=== PATIENT | female | born 1965 | race Caucasian/White ===

== ENCOUNTER 2023-05-20 20:56 | Emergency (ER) | payer MEDICAID, SELFPAY ==
[2023-05-20 21:01] VITALS: BP 169/86; PULSE 90; RESP 20; TEMP 36.6; O2SAT 99; BMI 39.9
--- NOTE | 2023-05-20 21:25 | ED.EAR1 ---
HPI - Ear Problem General Chief complaint: Ear Stated complaint: SWELLING RT EAR Time Seen by Provider: 05/20/23 21:22 Source: patient Mode of arrival: walk-in History of Present Illness HPI Narrative: presents complaining of swelling and burning itching pain of the right ear. Started last night. Believes she may have been bitten by a bug but is not sure. No dizziness or headache. Hearing muffled on the right. No dental pain MD Complaint: Reports ear pain Location: right ear Related Data Home Medications Medication Instructions Recorded Confirmed omeprazole 20 mg capsule,delayed 20 mg PO DAILY 05/20/23 05/20/23 release phentermine 15 mg capsule 15 mg PO DAILY 05/20/23 05/20/23 Allergies Allergy/AdvReac Type Severity Reaction Status Date / Time Sulfa (Sulfonamide AdvReac Mild Hives Verified 05/20/23 21:01 Antibiotics) Review of Systems ROS Status of ROS 10 or more systems reviewed and unremarkable except as noted in history and below [facility] Medical History (Updated 05/20/23 @ 23:08 by Mukesh Castillo MD) Exam Constitutional Vital Signs, click to edit/add: Last Vital Signs Temp 97.9 F 05/20/23 21:01 Pulse 90 05/20/23 21:01 Resp 20 05/20/23 21:01 BP 169/86 H 05/20/23 21:01 Pulse Ox 99 05/20/23 21:01 O2 Del Method Room Air 05/20/23 21:01 Common normals: no apparent distress, oriented x3, no limitations, healthy appearing and alert HENNE Other: right external ear is enlarged and mildly erythematous. ear canal is narrow. TM appears normal. No exudate in the canal. Eye Common normals: PERRL, EOMs intact bilaterally and conjunctivae normal Respiratory Common normals: normal respiratory effort, no retractions and no use of accessory muscles Cardio Common normals: regular rate, regular rhythm, S1 normal heart sound and S2 normal heart sound GI Common normals: Normal to inspection, nondistended, normoactive bowel sounds present and non-tender Extremity Common normals: normal to inspection, full ROM and no joint enlargement Neuro Common normals: oriented x3, CN's II-XII intact bilaterally, moves all extremities, no focal motor deficits and no sensory deficits noted Psych Appearance: grossly normal Course Vital Signs Vital signs: Vital Signs Temperature 97.9 F 05/20/23 21:01 Pulse Rate 90 05/20/23 21:01 Respiratory Rate 20 05/20/23 21:01 Blood Pressure 169/86 H 05/20/23 21:01 Pulse Oximetry 99 05/20/23 21:01 Oxygen Delivery Method Room Air 05/20/23 21:01 Temperature 97.9 F 05/20/23 21:01 Pulse Rate 90 05/20/23 21:01 Respiratory Rate 20 05/20/23 21:01 Blood Pressure 169/86 H 05/20/23 21:01 Pulse Oximetry 99 05/20/23 21:01 Oxygen Delivery Method Room Air 05/20/23 21:01 Medical Decision Making MDM Narrative Medical decision making narrative: patient presents with one day history of swelling of the right ear. Believes she may have been bitten or stung by insect. Describes burning itching pain. Has mod. swelling and erythema of the ext. ear. mild erythema at entry of ear canal. TM normal. Treated in the ER with Rocephin and solumedrol and prior to discharge the swelling and burning had decreased some. Discharged home with prescription of keflex and prednisone Discharge Plan Discharge Chief Complaint: Ear Clinical Impression: Cellulitis of ear Patient Disposition: Home, Self-Care Mode of Transportation: Private Vehicle Prescriptions / Home Meds: No Action omeprazole 20 mg capsule,delayed release(DR/EC) 20 mg PO DAILY phentermine 15 mg capsule 15 mg PO DAILY Rx Instructions: must administer 2 hours after breakfast Instructions: Cellulitis (ED) Additional Instructions: follow up with your doctor next week or with Dr Alexis for recheck Stand Alone Forms: Portal Instructions Referrals: Physician,Non-Staff, MD [Primary Care Provider] - 1 week
[2023-05-20] MEDS: METHYLPREDNISOLONE SOD SUCC PF 125 MG/2 ML VIAL IVP (22:07)
[2023-05-20 22:08] LABS: Basophils Percent Auto 0.5 % (0.2-2.0); Eosinophils Absolute Auto 0.2 10^3/uL (0.0-0.7); Hematocrit 44.7 % (36.0-48.0); Immature Granulocytes Abs Auto 0.03 10^3/uL (0.00-0.03); Immature Granulocytes Pct Auto 0.4 % (0.0-0.5); Lymphocytes Absolute Auto 1.7 10^3/uL (1.2-3.8); Lymphocytes Percent Auto 20.4 % (20.5-60.0); Mean Corpuscular HGB Conc 31.3 g/dL (29.9-35.2); Mean Corpuscular Hemoglobin 26.8 pg (26.7-34.0); Mean Corpuscular Volume 85.6 fL (81.0-99.0); Mean Platelet Volume 9.3 fL (9.5-13.5); Monocytes Absolute Auto 0.6 10^3/uL (0.3-0.8); Monocytes Percent Auto 7.6 % (1.7-12.0); Neutrophils Absolute Auto 5.7 10^3/uL (1.4-6.5); Neutrophils Percent Auto 69.1 % (43.0-75.0); Platelet Count 237 10^3/uL (150-450); Red Blood Count 5.22 10^6/uL (4.20-5.40); Red Cell Distribution Width 14.6 % (11.0-15.0); White Blood Count 8.2 10^3/uL (4.0-11.0)
[2023-05-20] MEDS: CEFTRIAXONE 1,000 MG in 0.9 % SODIUM CHLORIDE 50 ML 100 MG IV (22:08)
[2023-05-20 22:16] LABS: Anion Gap 12.6; BUN Creatinine Ratio 14.8; C Reactive Protein 0.3 mg/dL (<=1.0); Calcium 9.1 mg/dL (8.5-10.1); Carbon Dioxide 27.4 mmol/L (21.0-32.0); Chloride 103 mmol/L (98-107); Estimated GFR (African America 59 (>=60); Estimated GFR (Non-African Ame 48 (>=60); Glucose 98 mg/dL (74-106); Sodium 139 mmol/L (136-145)
== END 2023-05-20 23:20 | disposition home or self-care (01) ==
PROVIDERS: Emergency Provider Internal Medicine
DX: H60.11 Cellulitis of right external ear (principal)
CPT/HCPCS: 36415; 80048; 85025; 86140; 96365; 96375; 99284; J2930

== ENCOUNTER 2025-05-25 03:22 | Emergency (ER) | payer MEDICAID, SELFPAY ==
--- OUTSIDE RECORDS SUMMARY | 2025-05-13 12:10 | XMS_ITS ---
Author Organization [employer] Address [address] [place] [address] Care Team Providers Care Seam Hammerer Name Role Phone Brittney Grace Unavailable [phone] Allergies Allergen (clinical drug ingredient) Drug/Non Drug Allergy documented on EMR Reaction Allergy Type Onset Date Status metronidazole metroNIDAZOLE Nausea/Vomitin g Drug Allergy Active Sulfanilamide Nausea Drug Allergy Act hyun REASON FOR VISIT 5r, pt undressed from waist down, colposcopy w/ Brittney, c/o she said she bled a lot last time, upt neg Medications Medication SIG (Take, Route, Fr equency, Duration) Notes Start Date End Date Status Valium 10 MG 1 tablet as needed O rally Once a day 02/05/2025 Not-Taking Omeprazole Active Social History Sex Assigned At : Social History Observation Description Sex Assigned At Female Vital Signs Blood pressure systolic 132 mm Hg 05/13/20 25 Blood pressure diastolic 88 mm Hg 025 Heart Rate 80 /min 05/13/2025 Height 62 in 05/13/2025 Weight 217 lbs 05/13/2025 BMI 39.69 kg/m2 05/13/2025 Height-cm 157.48 cm 05/13/2025 Weight-kg 98.43 kg 05/13/2025 Encounters Encounter Location Date Provider Diagnosis [facility] [address] [place] [id number] 05/13/2025 Brittney Grace Atypical squamous cells of undetermined significance on cytologic smear of cervix (ASC-US) R87.610 and Cervical high risk human papillomavirus (HPV) DNA test positive R87.810 Assessments Encounter Date Diagnosis (ICD Code) Assessment Notes Treatment Notes Treatment Clinical Notes Section Notes 05/13/2025 Atypical squamous cells of undetermined significance on cytologic smear of cervix (ASC-US) (ICD-10 - R87.610) Dwp sexually transmitted with 80% of population having exposure- dwp disease process. encouraged healthy lifestyle, multivitamin, green tea. dwp process of colpo. encouraged keeping current with paps/ tx plan. pt verbalized understanding. questions answered 05/13/2025 Cervical high risk human papillomavirus (HPV) DNA test positive (ICD-10 - R87.810) Reviewed process ,consent signed, procedure completed with bx,12 oclock ecc,lorena well, results pending.instructe d on after care and wss 05/13/2025 Other DWP natural hx of her condition(s), RBAs of the above recommendations, WSS, treatment plan and instructions, appropriate teaching, circumstances under which pt should call. please discuss any med interactions with pharmacist. Pt verbalizes understanding and agrees to proceed with discussed plan of care. Plan Of Treatment Treatment Notes Assessment Notes Atypical squamous cells of u ndetermined significance on cytologic smear of cervix (ASC-US) Dwp sexually transmitted with 80% of population having exposure- dwp disease process. encouraged healthy lifestyle, multivitamin, green tea. dwp process of colpo. encouraged keeping current with paps/ tx plan. pt verbalized understanding. questions answered Cervical high risk human pap illomavirus (HPV) DNA test positive Reviewed process ,consent signed, procedure completed with bx,12 oclock ecc,lorena well, results pending.instructed on after care and wss Other DWP natural hx of he r condition(s), RBAs of the above recommendations, WSS, treatment plan and instructions, appropriate teaching, circumstances under which pt should call. please discuss any med interactions with pharmacist. Pt verbalizes understanding and agrees to proceed with discussed plan of care. Future Test Test Name Order Date Pathology Report-[id number] 05/13/2025 Next Appt Details Follow Up: 2w mvv results, R dileep: Provider Name:Brittney Grace, 06/02/2025 03:40:00 PM, [address], [place], [id number], Procedure Notes * Category Sub-Category Detail Notes Colposcopy Consent: Signed Procedure: Pt placed in dorsal lith position, micha spec applied with good visualization of cervix. vinegar applied to cervix and AW changes noted at ___12 o'clock, cervix biopsies taken at ___12 o'clock, ECC done. Hemostasis assured with pressure an, Colposcopic site: Cervix Indication: Ascus hpv Endocervical Curettage: Yes Biopsy 1: 12 oclock Biopsy site treatment: Pressure Disposition: Tolerated well Date of Pap: 2024 Test: Menopausal Progress Notes * Livan SOSAB:[birth year] (59 yo F)Acc No.[id number]:05/13/2025 Patient: Vernell MACDONALD Provider: Yemi Grace NP :1965 A ge:59 Y S ex:Female Date:05/13/2025 Address:[facility], [place], [id number] Subjective: * Chief Complaints: * 5 r, pt undressed from waist down, colposcopy w/ Brittney, c/o she said she bled a lot last time, upt neg * HPI: H PI: Abn pap. onset unknown. location cervix. denies pain, vag bleeding.sexually transmitted. here to discuss findings, treatment here for colpo after abn pap. * ROS: G ynecology: Abnormal bleeding d enies. B reast: Patient denies B SE done regularly. Denies lumps. Denies nipple problems. Denies mastalgia. Denies tenderness. Denies rash. Denies Other problems.. ? G enitourinary: Patient denies D enies Hematuria. Denies Dysuria. Denies Frequency. Denies hesitation. Denies incomplete emptying. Denies urgency. Denies incontinence. Denies pads. Denies pain. Denies bloating. Denies rectal fulness. Denies defecation. Denies Other problems.. * Medical History: * Hot Box Checker History: M enstrual history: L MP: 0 12/12/2016. D enies H/O Periods :. B irth control?None. S exual activity c urrently sexually active, dryness. S exually Transmitted Diseases (STDs) H uman papilloma virus (HPV). L ast PAP smear date: L ast pap smear 0 02/11/2025. C ytology result: A SCUS, +HPV,colpo atypia. P AP History 2 Nov Pap ASCUS, +[id number] Colposcopy, dx [id number] March pap ASCUS +HPV colpo pending. L ast WWE?[id number]. L ast Mammogram: D ate 0 04/25/2025, Results p er patient normal. * OB History: P regnancy History: T otal pregnancies: 3 , F ull-term pregnancies: 3 , P re-term pregnancies 0 , E ctopic pregnancies: 0 , A B Induced: 0 , A B Spontaneous: 0 , T otal living children: 3 , M ultiple births: 0 , S tillbirth (s): 0 . P regnancy #1 D ate 1 11/17/1981, G A Weeks 4 1, T ype of Delivery?. P regnancy #2 D ate 0 07/24/1988, G A Weeks 4 1, T ype of Delivery N . P regnancy #3 D ate 0 06/27/1990, T ype of Delivery N . * Surgical History: g allbladder removed * Hospitalization/Major Diagno stic Procedure: D enies Past Hospitalization * Family History: F ather: , diagnosed with Cancer, High Cholesterol. M igrated Family History: : Cancer: m- grandpa lUng, father-renal, Diabetes: none, [employer] Problems: mom-hysterectomy @ 46, Heart Disease: mom, Hyperlipidemia: dad, Hypertension: dad, Mother Health: good, Siblings Living#: 3, Siblings #: 0. M other: alive, diagnosed with Hypertension. M aternal Grandfather: diagnosed with Cancer. father kidney cancer mat gpa lung. * Social History: T obacco Use: T obacco Use D o you smoke? N o. * Medications: T akingOmeprazole Taking Omeprazole Not-TakingValium 10 MG Tablet 1 tablet as needed Orally Once a day Medication List reviewed and reconciled with the patientNot- Taking Valium 10 MG Tablet 1 tablet as needed Orally Once a day Medication List reviewed and reconciled with the patient * Allergies: m etroNIDAZOLE: Nausea/Vomiting - AllergySulfanilamide: Nausea - Allergyno[Allergies Verified] Objective: * Vitals: BP 132/88mm Hg 05/13/2025 04:16:50 PM MST HR* 80/min 05/13/2025 04:16:50 PM MST Zara R obinson Wt* 217lbs 05/13/2025 04:16:50 PM MST Azra R obinson Wt-kg* 98.43kg 05/13/2025 04:16:50 PM MST Zara R obinson Ht* 62in 05/13/2025 04:16:50 PM MST Zara R obinson Ht-cm* 157.48cm 05/13/2025 04:16:50 PM MST Zara R obinson BMI* 39.69Index 05/13/2025 04:16:50 PM MST Zara R obinson Body Surface Area* 2.08 05/13/2025 04:16:50 PM MST Zara R obinson * Examination: L imited Exam: Appearance W ell developed. Well nourished. Well groomed. In good apparent health.. Skin G ood Hydration. Normal tone/turgor. Normal to inspection. No Lesions. Normal hair distribution. No actinic changes.. HEENT: S ymmetrical pupils. Sclera WNL. No Strabismus..? Lungs G ood respiratory effort. Non-labored respirations..? Neuro/Psych A lert. Cooperative. Oriented to place, time, and person. Normal speech and behavior. No Tremors. Normal mood and affect. No outward signs of depression. No apparent anxiety. Not agitated. Cranial nerves II-XII grossly intact.. ? G ynecologic: Vulva: N ormal crinis pubis and hair distribution. No localized or pigmented lesions. No mass(es). Normal clitoris. Normal BUS. Normal labia. Normal perineum and fourchette. Normal introitus.. Vagina: N o localized lesions. No congestion. No abnormal discharge. No forniceal changes. Good estrogen effect. No mass(es). No cystourethrocele. No enterocele. No rectocele.. Cervix: W ell supported. Without fixation. Not tender to motion.. Uterus: N ormal position. Normal contour. Normal consistency. Freely movable. No tenderness / thickening. No masses.. Adnexa: W ithout tenderness, mass, thickening, fixation, or other abnormality.. Assessment: * Assessment: 1. A typical squamous cells of undetermined significance on cytologic smear of cervix (ASC-US) - R87.610 (Primary) 2 . C ervical high risk human papillomavirus (HPV) DNA test positive - R87.810 Plan: * Treatment: 2. C ervical high risk human papillomavirus (HPV) DNA test positive L AB: Pathology Report-[id number] (Ordered for 05/13/2025) Notes: Reviewed process ,consent signed, procedure completed with bx,12 oclock ecc,lorena well, results pending.instructed on after care and wss 3. O thers Notes: DWP natural hx of her condition(s), RBAs of the above recommendations, WSS, treatment plan and instructions, appropriate teaching, circumstances under which pt should call. please discuss any med interactions with pharmacist. Pt verbalizes understanding and agrees to proceed with discussed plan of care. * Procedures: C olposcopy: Indication: A scus hpv. D ate of Pap: 2 025. E ndocervical Curettage: Y es. C onsent: S igned. C olposcopic site: C ervix. P rocedure: P t placed in dorsal lith position, micha spec applied with good visualization of cervix. vinegar applied to cervix and AW changes noted at ___12 o'clock, cervix biopsies taken at ___12 o'clock, ECC done. Hemostasis assured with pressure an,. B iopsy 1: 1 2 oclock. B iopsy site treatment: P ressure. D isposition: T olerated well. P regnancy Test: M enopausal. * Procedure Codes: * Follow Up: 2 w mvv results * Billing Information: * Visit Code: 83776 Office/Outpatient Visit Est. 78688 Bx/Curett Of Cervix W/Scope. 88093 Special Supplies. * Procedure Codes: * Sign off status: Completed true * Provider: Yemi Grace NP Date: 05/13/2025 Generated for Ravi mayorga/Carine/Bennieitting on: 05/25/2025 01:31 AM MDT History and Physical Notes * Examination Category Sub-Category Detail Notes Category Not es Gynecologic Vulva: Normal crinis pu bis and hair distribution. No localized or pigmented lesions. No mass(es). Normal clitoris. Normal BUS. Normal labia. Normal perineum and fourchette. Normal introitus. Vagina: No localized lesions . No congestion. No abnormal discharge. No forniceal changes. Good estrogen effect. No mass(es). No cystourethrocele. No enterocele. No rectocele. Cervix: Well supported. With out fixation. Not tender to motion. Uterus: Normal position. Nor mal contour. Normal consistency. Freely movable. No tenderness / thickening. No masses. Adnexa: Without tenderness, mass, thickening, fixation, or other abnormality. Limited Exam Appearance Well developed. Well nourished. Well groomed. In good apparent health. Skin Good Hydration. Norm al tone/turgor. Normal to inspection. No Lesions. Normal hair distribution. No actinic changes. HEENT: Symmetrical pupils. Sclera WNL. No Strabismus. Lungs Good respiratory eff ort. Non-labored respirations. Neuro/Psych Alert. Cooperative. Oriented to place, time, and person. Normal speech and behavior. No Tremors. Normal mood and affect. No outward signs of depression. No apparent anxiety. Not agitated. Cranial nerves II-XII grossly intact.
--- OUTSIDE RECORDS SUMMARY | 2025-05-13 12:10 | XMS_ITS ---
Author Organization [employer] Address [address] [place] [address] Care Team Providers Care Emergency Communications Officer Name Role Phone Brittney Grace Unavailable [phone] REASON FOR VISIT colposcopy w/ Brittney Social History Sex Assigned At : Social History Observation Description Sex Assigned At Female Encounters Encounter Location Date Provider Diagnosis [facility] [address] [place], [place] [phone] 05/13/2025 Brittney Grace Plan Of Treatment Next Appt Details Provider Name:Brittney Grace, 06/02/2025 03:40:00 PM, [address], [place], [place], [phone], Progress Notes * Tila SOSAPoojaB:[birth year] 63 (59 yo F)Acc No.[id number]:05/13/2025 Patient: Vernell MACDONALD Provider: Yemi Grace NP :1965 A ge:59 Y S ex:Female Date:05/13/2025 Address:[address] [place], [id number] Subjective: * Chief Complaints: * 1 . colposcopy w/ Brittney. * Medical History: Objective: Assessment: Plan: * Treatment: * Billing Information: * Visit Code: * Procedure Codes: * Electronic signature of Hilario Grace NP on 05/25/2025 at 01:31 AM MDT Sign off status: Pending * Provider: Yemi Grace NP Date: 0 05/13/2025 Generated for Ravi mayorga/Carine/Bennieitting on: 0 05/25/2025 01:31 AM ANNITA
[2025-05-25 03:32] VITALS: PULSE 78; TEMP 36.8; O2SAT 99; BMI 38.4
--- OUTSIDE RECORDS SUMMARY | 2025-05-25 03:32 | XMS_ITS | Patient Health Record ---
Author Organization [employer] Address [address] [place] [address] Care Team Providers Care Machine Joiner Cementer Name Role Phone Lin Peguero Unavailable [phone] Brittney Grace Unavailable [phone] MelyKrystaAisha Unavailable [phone] ReedRadha Unavailable [phone] Migration, Provider Unavailable Unavailable Radha Cooney Unavailable [phone] Allergies Allergen (clinical drug ingredient) Drug/Non Drug Allergy documented on EMR Reaction Allergy Type Onset Date Status metronidazole metroNIDAZOLE Nausea/Vomitin g Drug Allergy Active Sulfanilamide Nausea Drug Allergy Act hyun Results Component Value Reference Range Notes Vaginitis/Vaginosis, DNA Pro be-[id number] Reviewed date:03/21/2025 01:12:19 PM Interpretation: Performing Lab:[facility] [place], [address] [place] [address] [address], [place], Phone - [phone], Director - [facility] Notes/Report: Silvina species TNP Test not performed. No specimen received. Specimen required is an Affirm Transport. Gardnerella vaginalis TNP Test n ot performed Trichomonas vaginalis TNP Test n ot performed Request Problem TNP Test not performed. No specimen received. TEST: [id number] Vaginitis/Vaginosis, DNA Probe Specimen required is an Affirm Transport. IGP,Aptima HPV,Age Gdln-1931 64 Reviewed date:02/19/2025 12:32:34 PM Interpretation: Performing Lab:[facility] [place], [address], [place], Phone - [phone], Director - MDCollum Notes/Report: Clinical Information:[id number] Clinical Information:[id number] Age Gdln ACOG Testing 30-65 DIAGNOSIS: EPITHELIAL CELL ABNORMALITY. ATYPICAL SQUAMOUS CELLS OF UNDETERMINED SIGNIFICANCE (ASC-US). Specimen adequacy: Satisfact ory for evaluation. Clinician provided ICD10: Z0 1.419 Performed by: [facility] (ASCP) Electronically signed by: St vianca Fair MD, Pathologist . . Pathologist provided ICD10: R87.610 Note: The Pap smear is a screening test designed to aid in the detection of premalignant and malignant conditions of the uterine cervix. It is not a diagnostic procedure and should not be used as the sole means of detecting cervical cancer. Both false-positive and false-negative reports do occur. . Test Methodology: This liquid based ThinPrep(R) pap test was screened with the use of an image guided system. HPV Aptima Positive Negative This nucleic acid amplification test detects fourteen high-risk HPV types (16,18,31,33,35,39,45,51,52,5 6,58,59,66,68) without differentiation. HPV Genotype Reflex Criteria not met, HPV Genotype not performed. Vaginitis: Silvina, BV, and trich 520550 Reviewed date:03/21/2025 01:16:01 PM Interpretation: Performing Lab:[facility] [place], [facility] [address], [place], Phone - [phone], Director - [facility] Notes/Report: and Drug Administration. by [facility]. It has not been cleared or approved by the [employer] was [employer] and its performance characteristics determined Test(s) 784066-Xmoxtog albicans, THI; 750025-Krkqnnc glabrata, THI and Drug Administration. by [facility]. It has not been cleared or approved by the [employer] was [employer] and its performance characteristics determined Megasphaera 1 Test(s) 783211- Atopobium vaginae; 471863- BVAB 2; 280715- Atopobium vaginae Low - 0 BVAB 2 Low - 0 Megasphaera 1 Low - 0 Calculate total score by adding the 3 individual bacterial vaginosis (BV) marker scores together. Total score is interpreted as follows: Total score 0-1: Indicates the absence of BV. Total score 2: Indeterminate for BV. Additional clinical data should be evaluated to establish a diagnosis. Total score 3-6: Indicates the presence of BV. Silvina albicans, THI Negative Negative Silvina glabrata, THI Negative Negative Trich vag by THI Negative Negative Written Authorization Reviewed date:03/21/2025 01:16:01 PM Interpretation: Performing Lab:[facility] [place], [address], [place], Phone - [phone], Director - [facility] Notes/Report: Test(s) 467301- Atopobium vaginae; 713842- BVAB 2; 743257- Megasphaera 1 was developed and its performance characteristics determined by [facility]. It has not been cleared or approved by the Food and Drug Administration. Test(s) 304987-Nzymcyy albicans, THI; 759888-Sivjatd glabrata, THI was developed and its performance characteristics determined by [facility]. It has not been cleared or approved by the Food and Drug Administration. Written Authorization Written Authorization Received. Authorization received from ORIGINAL ORDER 01-29-2025 Logged by [employer] Test Code Change Reviewed date:03/21/2025 01:16:01 PM Interpretation: Performing Lab:[facility] [place], [address], [place], Phone - [phone], Director - [facility] Notes/Report: Test(s) 902587- Atopobium vaginae; 265011- BVAB 2; 607083- Megasphaera 1 was developed and its performance characteristics determined by [facility]. It has not been cleared or approved by the Food and Drug Administration. Test(s) 845949-Zxehqev albicans, THI; 189550-Elifrfb glabrata, THI was developed and its performance characteristics determined by [facility]. It has not been cleared or approved by the Food and Drug Administration. Test Code Change Please note that the Microbiology test code was changed to reflect the specimen source or transport received. Ultrasound : WET CHEMISTRY ANALYST Pelvic (Not yet reviewed by provider) Interpretation: Performing Lab: Notes/Report: Ultrasound : WET CHEMISTRY ANALYST Pelvic (Not yet reviewed by provider) Interpretation: Performing Lab: Notes/Report: Ultrasound : WET CHEMISTRY ANALYST Pelvic (Not yet reviewed by provider) Interpretation: Performing Lab: Notes/Report: Ultrasound : WET CHEMISTRY ANALYST Pelvic (Not yet reviewed by provider) Interpretation: Performing Lab: Notes/Report: Pathology Report-[id number] (Not yet reviewed by provider) Interpretation: Performing Lab:[facility] [place], [address], [place], Phone - [phone], Director - [facility] Notes/Report: Clinical Information:[id number] . Material submitted: . PART A: endocervix - ECC PART B: cervix - 12:00. Modifiers: 12:00 . Clinician provided ICD-10: R87.810 . Diagnosis: Part A: ECC: BENIGN ECTOCERVICAL TISSUE. MINUTE FRAGMENTS OF BENIGN ENDOCERVICAL GLANDULAR TISSUE. . Part B: 12:00: INFLAMED FRAGMENTS OF BENIGN ECTOCERVICAL TISSUE WITH REACTIVE CHANGES. . [facility] 05/20/2025 1433 Local . Electronically signed: . Yesenia Fair MD, Pathologist . Gross description: . 2 Containers, formalin-filled, labeled with patient identification. . Part A: ECC: RECEIVED IS AN ENDOCERVICAL BRUSH. SCRAPINGS PRODUCE 0.5 GM IN AGGREGATE OF MUCUS, HEMORRHAGIC MATERIAL AND SOFT TISSUE FRAGMENTS. TOTALLY SUBMITTED IN ONE CASSETTE. . Part B: 12:00: RECEIVED IS LESS THAN 0.3 GM OF MUCUS AND ONE WAHL-RENDON SOFT TISSUE FRAGMENT. FILTERED THROUGH LENS PAPER AND TOTALLY SUBMITTED IN ONE CASSETTE. /GRV 05/16/2025 1312 Local . CPT . 721495, 051126 Vaginitis Plus: Silvina, BV, GC/Chlam, Trich 836540 Reviewed date:05/01/2025 05:59:00 PM Interpretation: Performing Lab:[facility] [place], [address] [place] [address], [place], Phone - [phone], Director - [facility] Notes/Report: and Drug Administration. by [facility]. It has not been cleared or approved by the Food was developed and its performance characteristics determined Test(s) 487311-Nuflrhj albicans, THI; 025370-Twhzmgv glabrata, THI and Drug Administration. by [facility]. It has not been cleared or approved by the Food was developed and its performance characteristics determined Megasphaera 1 Clinical Information:SRC:OMID Atopobium vaginae Low - 0 BVAB 2 Low - 0 Megasphaera 1 Low - 0 Calculate total score by adding the 3 individual bacterial vaginosis (BV) marker scores together. Total score is interpreted as follows: Total score 0-1: Indicates the absence of BV. Total score 2: Indeterminate for BV. Additional clinical data should be evaluated to establish a diagnosis. Total score 3-6: Indicates the presence of BV. Silvnia albicans, THI Negative Negative Silvina glabrata, THI Negative Negative Trich vag by THI Negative Negative Chlamydia trachomatis, THI Negative Negative Neisseria gonorrhoeae, THI Negative Negative One Specimen Identifier Reviewed date:03/21/2025 01:12:19 PM Interpretation: Performing Lab:[facility] [place], [address] [place] [address], [place], Phone - [phone], Director - [facility] Notes/Report: One Specimen Identifier The specimen received included only one patient identifier on the primary collection container. Our laboratory accrediting agency states All primary specimen containers must be labeled with 2 identifiers at the time of collection. PDF Report (Not yet reviewed by provider) Interpretation: Performing Lab:[facility] [place], [address], [place], Phone - [phone], Director - [facility] Notes/Report: An exception occurred while processing this report and so it has incomplete data. Please contact [employer] for assistance. Clinical Information:[id number] Reason For Referral Reason please refer to [facility] for morbid obesity w comorbidities Diagnosis 1 Morbid obesity (E66. 01) Referral Organization [facility] Carreno Referring Provider First Name Aisha Referring Provider Last Name Mely Referring Provider Speciality Obstetrici an and instructional manager Referred Provider Specialty Physician General Notes Rach Dunn 2024 08:00:30 PM > [facility] WET CHEMISTRY ANALYST pt, referral cannot be processed. Advised pt to get this through PCP. Referral Priority Routine Medications Medication SIG (Take, Route, Fr equency, Duration) Notes Start Date End Date Status Valium 10 MG 1 tablet as needed O rally Once a day 02/05/2025 Not-Taking Omeprazole Active Social History Sex Assigned At : Social History Observation Description Sex Assigned At Female Problems Problem Type SNOMED Code ICD Code Onset Dates Problem Status W/U Status Risk Notes Problem Polyp of corpus uteri (99498119) Polyp of corpus uteri (N84.0) Active confirmed Problem 12649186 Atypical squamous cells of undetermined significance on cytologic smear of cervix (ASC-US) (R87.610) Active confirmed Problem 9250046342 Endometrial polyp (N84.0) Active confirmed Problem 29420259 Hypertension (I10) Active confirmed Problem 857356049 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 Problem 469685791 Morbid obesity (E66.01) Active confirmed Vital Signs Heart Rate 80 /min 05/13/2025 Temperature 97.7 degrees Fahrenheit 01/24/2025 Respiratory Rate 16 /min 01/24/2025 Blood pressure diastolic 88 mm Hg 05/13/2025 Height-cm 157.48 cm 05/13/2025 Weight-kg 98.43 kg 05/13/2025 Height 62 in 05/13/2025 Blood pressure systolic 132 mm Hg 05/13/2025 Weight 217 lbs 05/13/2025 BMI 39.69 kg/m2 05/13/2025 Encounters Encounter Location Date Provider Diagnosis [facility] [address] [place], [place] [id number] 05/28/2024 Radha Mcbride Person consulting fo r explanation of examination or test findings Z71.2 Ms Doctoraurelio [facility] [address] [place], [place] [id number] 07/28/2024 Provider Migration Ms Doctora [facility] [address] [place], [place] [id number] 07/27/2024 Provider Migration [facility] Josefina Carreno [address] [facility] [place] [id number] 01/24/2025 Aisha Boone Routine gynecological examination Z01.419 [facility] Josefina Carreno [address] [place], [place] [id number] 01/31/2025 Aisha Boone Polyp of corpus uteri N84.0 [facility] Josefina Carreno [address] [place], [place] [id number] 01/31/2025 Aisha Boone Endometrial polyp N84.0 ; Hypertension I10 and Morbid obesity E66.01 [facility] Josefina Carreno [address] [place], [place] [id number] 02/05/2025 Lin Bess Atypical squamous cells of undetermined significance (ASC-US) on cervical Pap smear R87.610 [facility] [address] [place], [place] [phone] 04/25/2025 Radha Mcbride Pelvic pain R10.2 [facility] [address] [place], [place] [id number] 04/29/2025 Radha Cooney [facility] [place] [address] [place], [place] [id number] 04/29/2025 Radha Cooney Endometrial polyp N84.0 ; Atypical squamous cells of undetermined significance on cytologic smear of cervix (ASC-US) R87.610 and HPV in female B97.7 [facility] [address] [place], [place] [id number] 05/13/2025 Brittney Grace Atypical squamous cells of undetermined significance on cytologic smear of cervix (ASC-US) R87.610 and Cervical high risk human papillomavirus (HPV) DNA test positive R87.810 [facility] [address] [place], [place] [id number] 05/13/2025 Brittney Bergkin Assessments Encounter Date Diagnosis (ICD Code) Assessment Notes Treatment Notes Treatment Clinical Notes Section Notes 05/28/2024 Person consulting for explanation of examination or test findings (ICD-10 - Z71.2) 01/24/2025 Routine gynecological examination (ICD-10 - Z01.419) 01/31/2025 Polyp of corpus uteri (ICD-10 - N84.0) 01/31/2025 Endometrial polyp (ICD-10 - N84.0) EMS 0.71mm + 0.66cm polyp. No postmenopausal bleeding. If PMB bleeding occurs, will do bx or likely pt to prefer hysteroscopy D&C 01/31/2025 Hypertension (ICD-10 - I10) BP 180/90 today concerning for hypertensive urgency,,, asymptomatic, not on any antihypertensives. Was rx'd lisinopril 5mg but doesn't take it, instructed pt to go home and take this immediately. States BPs at home are 138/80. Pt has appt at the beginning of february, encouraged to f/u sooner and take home BP machine. Pt states she has white coat HTN. Discussed risk of strokes/ intracranial hemorrhage, HTN. If pt BP still elevated s/p lisinopril at home, go to ER. 02/05/2025 Atypical squamous cells of undetermined significance (ASC-US) on cervical Pap smear (ICD-10 - R87.610) We have reviewed the ASCCP guidelines using a schematic diagram. Encouraged diet high in f&v, 7-8h sleep each night, and folic acid supplement. She is a non-smoker. The next steps include: Colposcopy next available. She used a Valium 10mg last colpo. Sent another today. Advised pt re MOA, directions, risks, and possible s/e of all medications prescribed today. The plan was DWP in detail. Questions answered to pt's satisfact. WSS/RBA of therapies recommended were DWP. She understands & agrees with POC & when to call vs RTO. 04/25/2025 Pelvic pain (ICD-10 - R10.2) DWP possible etiologies of her symptoms. UA negative. VG+ collected. Pelvic US ordered to r/o other causes of pain. Pt requesting antibiotics for cervicitis, but now willing to wait until results are back prior to treatment. Reviewed WSS and when to go to the ED or RTO. All questions addressed. 04/29/2025 Atypical squamous cells of undetermined significance on cytologic smear of cervix (ASC-US) (ICD-10 - R87.610) DWP results of 12/2024 pap smear +HPV/ASCUS which is same as 11/2023. Pt reports getting colpo last year after pap which was benign. DWP ASCCP guidelines recommend a repeat colposcopy. Patient reports she desires Praveen Grace NP to perform colposcopy. Colpo next week with BLAIR Lugo. 04/29/2025 Endometrial polyp (ICD-10 - N84.0) DWP US results EMS 8mm appears thickened, echogenic w/multiple cysts and appears to have hypoechoic mass, avascular 0.7x0.5x0.6cm, possible polyp vs fibroid? LO suboptimal views appears WNL. RO not visualized due to bowel/gas. Recommended EMB for thickened EML. Patient declined. She also reports that it was so painful last time and she does not want to have it repeated. Discussed with patient risk of cancer. 05/13/2025 Atypical squamous cells of undetermined significance [...] results pending.instructed on after care and wss 04/29/2025 HPV in female (ICD-10 - B97.7) 01/31/2025 Morbid obesity (ICD-10 - E66.01) 05/13/2025 Other DWP natural hx of her condition(s), RBAs of the above recommendations, WSS, treatment plan and instructions, appropriate teaching, circumstances under which pt should call. please discuss any med interactions with pharmacist. Pt verbalizes understanding and agrees to proceed with discussed plan of care. Plan Of Treatment Pending Test Test Name Order Date PDF Report 05/13/2025 Future Test Test Name Order Date Ultrasound : WET CHEMISTRY ANALYST Pelvic 01/31/2025 Ultrasound : WET CHEMISTRY ANALYST Pelvic 04/25/2025 Pathology Report-[id number] 05/13/2025 Next Appt Details Provider Name:Brittney Grace, 06/02/2025 03:40:00 PM, [address], [place], [phone], Insurance Providers Payer Name Payer Address Payer Phone Subscriber Number Group Number Insured Name Patient Relationship to Insured Coverage Start Date Coverage End Date [facility] [employer] [place] [address] [address] [place], [place] [id number] Vernell Ojeda Self - patient is the insured Medical (General) History Medical History History ICD Code eptein rodríguez-chronic fatigue, Disease Yea r : 2008 gallbladder issues, Disease Year : 2004 acid reflux Depression Surgical History Surgery Date(Month/Year) gallbladder removed Hospitalization History Reason Date(Month/Year)
--- OUTSIDE RECORDS SUMMARY | 2025-05-25 03:32 | XMS_ITS | Data Portability ---
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 once a week, limit portions to appropriat e serving sizes. I recommend moderate intensity exercise of 30 minutes/da y at least 5 days a week. The patient demonstrat ed understand ing and agreed to this plan. Follow up [id number] [facility] DO [facility] [address], [address] [place] [address] 02/08/2023 16:00:48 02/14/2023 17:30:26 Body mass index 40+ - severely obese 114257675 Z68.41 Pain of le ft hip joint [id number] 57828 M25.552 Status: Subacute, uncontroll ed ddx: lumbar/sac ral radiculopa thy vs sacroiliti s vs strain. Management : Patient has started physical therapy. We encouraged her to call for an appointmen t with imaging facility to get the x-rays. Orders were printed and given to the patient. We will continue to follow with the patient on this matter. Follow up: As needed Morbid obesity [id number] E66.01 Status: Uncontroll ed Management : Continue phentermin e. 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 We continued to encourage healthy choices with patient: I counseled with the patient related to the importance of achieving desireable weight so as to improve health in general. The patient was advised that losing even 5-10% of the current weight may help modify cardiovasc ular health significan tly. In order to prevent and/or treat obesity we recommend: limit sweetened beverages, limit the amount of junk food consumed, limit eating out to only once a week, limit portions to appropriat e serving sizes. I recommend moderate intensity exercise of 30 minutes/da y at least 5 days a week. The patient demonstr ed understand ing and agreed to this plan. Follow up 2 weeks Elevated blood-pressure reading without diagnosis of hypertension [id number] R03.0 Status: subacute Management : We recommende d that patient take her blood pressure daily and keep a record of it. We will assess these readings at her next appointmen t. Follow up: 2 weeks Thyroid nodule [id number] E04.1 Status: chronic, 2 years Management : Per patient, she has an unspecifie d thyroid nodule and was informed that it appears to benign. We will plan to order US and labs to monitor and will request records from the facility she was previously seen at, if possible. We will notify patient of any abnormal US results. Follow up: 2 months [id number] [facility] DO [facility] [address], [address] [place] [address] 03/31/2023 16:05:15 04/04/2023 13:48:45 Body mass index 40+ - severely obese [id number] Z68.41 Prediabetes 168812669 R7 3.03 STATUS: Increasing A1c 6.0 in December 2022Will recheck A1c today -I recommend eating a low carbohydra te diet which includes small portions of carbohydra benny and avoiding foods with high sugar content to help lower their glucose level as to prevent their progressio n for developing diabetes.- Also, their diet change may lead to weight loss and decreasing risks for other diseases. Recommend consuming a small amount of sugar per day by reading the labels on their food and counting their sugar intake.-It is recommende d that women eat less than 24 g sugar daily. FOLLOW-UP: 3-months Morbid obesity 176336448 E66.01 Status: Uncontroll ed Management : Increase phentermin e 15 mg from once a day to twice a day. We counseled the patient that decreased waist-circ umference is important to [facility] and that building muscle is helpful for care home weight loss, but may account for her current weight loss increment. We continued to encourage healthy choices with patient: I counseled with the patient related to the importance of achieving desireable weight so as to improve health in general. The patient was advised that losing even 5-10% of the current weight may help modify cardiovasc ular health significan tly. In order to prevent and/or treat obesity we recommend: limit sweetened beverages, limit the amount of junk food consumed, limit eating out to only once a week, limit portions to appropriat e serving sizes. I recommend moderate intensity exercise of 30 minutes/da y at least 5 days a week. The patient demonstrat ed understand ing and agreed to this plan. Follow up 4 weeks Gastroesop hageal reflux disease [id number] K21.9 STATUS: Uncontroll ed Symptoms have worsened over past few weeks despite being on omeprazole Will send referral for Gastroente rologyCont inue your current acid blockerAvo id food triggers FOLLOW UP: 1 month [id number] DIAMOND LEES,RES DG[facility] [address], [address] [place] [address] 04/26/2023 16:55:31 04/27/2023 16:03:42 Morbid obesity [id number] E66.01 CONDITION STATUS: Chronic- BMI: 39.3, down 16 lbs from her heaviest weight.- Follows with Bariatric Surgery, Dr. Jane- Medication s: Phentermin e 15mg BID RECOMMENDA TIONS:- Continue Phentermin e 15mg- I counseled the patient related to the adverse impact of their [morbid] obesity and how it greatly complicate s all their health related problems and certainly increases their risk for cardiovasc ular event. I explained, it will contribute to the progressiv e decline in the overall health state.- I discussed with the patient caloric/ca rbohydrate restrictio n and encourage exercise as tolerated. I recommend losing 5-10% of the current weight to help modify cardiovasc ular health. I recommende d 30 minutes of moderate intensity exercise 5 times a week, or 30 minutes of high-inten sity exercise 3 times a week.- In order to prevent and/or treat obesity I recommende d: limiting sweetened beverages, limiting the amount of junk food consumed, limit eating out to no more than once a week across all meals, limit portions to appropriat e serving sizes. FOLLOW-UP: one month for medication check and refill Prediabetes [id number] R7 3.03 CONDITION STATUS: Chronic, Stable- A1C: 5.9 from 6.0.- Medication s: none.- No reported FmHx of diabetes RECOMMENDA TIONS:- A long discussion was had with patient about controllin g their Pre-diabet es by taking their medication s regularly, eating a healthy diabetic diet, exercising >150 minutes a week and seeing their physician every 3 months or as directed. - Recommende d annual eye exams, daily foot self-inspe ctions, and routine blood work. - Patient given informatio n about risks of uncontroll ed blood sugar and HbA1C including cardiovasc ular events, blindness, kidney failure, neuropathy , and serious infections . FOLLOW-UP: 6 months Body mass index 40+ - severely obese [id number] Z68.41 Thyroid nodule 535861620 E04.1 CONDITION STATUS: Chronic, Stable- US Thyroid: Right Interpolar 10mm, solid, hypoechoic , wider than tall, smooth nodule. TR4- Recommende d FU at 1,2,3,5 years. Nodule non-tender to palpation- TSH: 1.270 (12/31/21) RECOMMENDA TIONS:- Will repeat Thyroid US in one year, order provided.- Recommenda tions given to patient to routinely monitor the nodule and palpate the nodule monthly to evaluate for enlargemen t. FOLLOW-UP: One-month [id number] [facility] [address], [address] [place] [address] 02/19/2024 16:57:37 02/22/2024 15:05:14 Body mass index 40+ - severely obese [id number] Z68.41 Thyroid nodule [id number] E04.1 Status: ChronicTR for rating for noduleDue for ultrasound follow-up in send order for the end of ow- up: After imaging Gastroesop hageal reflux disease [id number] K21.9 Status: ChronicNo red flag symptoms at this time, we could proceed with a trial of famotidine ; Vernell is amenable.W ill proceed with switching her evening dose to famotidine 40 for 1-2 months and then switching to famotidine 40 b.i.d..If she isn't tolerate this or has any other evolving symptoms we discussed follow-up with [facility].Fol low-up: 6 weeks Morbid obesity [id number] E66.01 Status: ChronicWe discussed a trial of bupropion/ naltrexone given her positive depressive screening; Vernell is amenable.W e will prescribe naltrexone 25 mg daily in conjunctio n with bupropion. Plan to follow up with tolerance in 2-4 weeks.Retu rn to care/ED precaution s include chest pain, shortness for breath, dizziness or syncope, nausea or vomiting.F ollow-up: 2-4 weeks Mild recur rent major depression [id number] F33.0 Status: NewPHQ 9: 10 pointsDisc ussed proceeding with bupropion conjunctio n with the above-ment ioned naltrexone for weight loss and depression ; Vernell is amenable. Will start with bupropion 150 daily. Patient denies any seizure history; discussed that this can reduce seizure threshold. Other adverse effects reviewed include any nausea, dizziness, GI upset.Foll ow-up: 2-4 weeks Health Concerns Section Related Observation LastModified by Organization Detai ls LastModified Time None Recorded Concern Status LastModified by Organization Details LastModified Time None Recorded Advance Directives Directive None Recorded Payers Insurance Date Sequence Insurance Name Policy Number Policy Plaza Covered Member ID Plaza Member ID Guarantor Name 03/19/2024 1 [facility] (MEDICAID REPLACEMENT - HMO) Vernell Ojeda [id number] Vernell Ojeda Notes Date Note Type Note Provider Name and Address Organization Details Recorded Time 01/06/2023 text/html ROS as noted in the HPI 57yo female presents for management of prediabetes, left hip pain, itchy scalp, GERD, and morbid obesity. Prediabetes:The patient presents for labs regarding this issue. She denies polyuria polydipsia, but also states that she has been unable to adopt lifestyle changes regard to bring her back into a normal glucose range. Pain in left hip pain:The patient states that she is continuing to experience pain in her left buttocks/hip area that radiates down her leg at times. There is pain when pressure is applied, and she has had 2 massage therapy sessions, which helped to alleviate this pain. She previously was placed on tizanidine, but states that she is unable to take it regularly, as she drives for a living and the medication made her feel loopy . She has started PT and sees minor improvement but still getting radiating pains. Dermatitis:Approxima tely one year of itching and flaking of scalp. waxes and wanes in severity. She has not tried any products to alleviate symptoms. Denies pain and burning. No bleeding, scabbing or scarring. GERD:Concerning GERD, the patient reports that they feel their condition is under good control. Associated symptoms include belching, nocturnal reflux, and mild abdominal discomfort. Symptoms are controlled with medication. The patient denies any new problems or any side effects from their current medical regimen. Complicated by obesity/overweight Morbid obesity:She is wanting to explore options to control her weight. She has previously attempted weight loss with Phentermine, but did not experience good results with this. Evan Best DO [address] [place], [phone], [facility] 01/10/2023 16:16:18 02/08/2023 text/html ROS as noted in the HPI Vernell 57 yo F presenting for a medication follow up. The patient started talking phentermine 2 weeks ago and has lost 3 lbs since her last appointment. She did not take the phentermine today or yesterday but, overall states that she is tolerating it very well. She has noticed mood and energy improvement feels as though her appetite is more appropriately controlled. Patient agrees to some palpitations, but this is unchanged from her baseline. Patient reports being s/p full cardiovascular work-up. She denies any chest pain and new or worsening dyspnea. Evan Best DO [address] [place], [phone], [facility] 02/14/2023 16:31:49 03/31/2023 text/html ROS as noted in the HPI Obesity:The patient started talking phentermine 15 mg 2 months ago and has lost 4 lb since starting on the medication. She is starting to get discouraged as she feels she has been washing her diet and is still unable to lose weight. Overall states that she is tolerating it very well. She has noticed mood and energy improvement feels as though her appetite is more appropriately controlled.She is interested in seeing a bariatric specialist for consultation and further nutritional advice Prediabetes:Last A1c in December was 6.0. She has been watching her carbohydrate intake. She denies any signs or symptoms of high or low blood sugar. GERD:Patient reports that they feel their condition is worsening despite taking omeprazole for many months.Symptoms include belching, nocturnal reflux, and mild abdominal discomfort.Complicat ed by obesity/overweight [facility] DO [address] [place], [phone], [facility] 04/04/2023 13:47:50 04/26/2023 text/html ROS as noted in the HPI Patient is a well-appearing 57 year old Female who presents for prediabetes, morbid obesity, thyroid nodule. Prediabetes: A1C: 5.9 from 6.0. Medications: none. No reported FmHx of diabetes Morbid Obesity: BMI: 39.3, down 16 lbs from her heaviest weight. Follows with Bariatric Surgery, Dr. Jane, undergoing weight loss management currently and undergoing evaluation for possible various bariatric surgery options. Medications: Phentermine 15mg BID Thyroid Nodule: US Thyroid reviewed. Right Interpolar 10mm, solid, hypoechoic, wider than tall, smooth nodule. TR4. FU recommended at 1,2,3,5 years. Nodule non-tender Patients Problems, Medications, History, Results have been reviewed, reconciled and are current per EMR. Preventative Health: Annual Visit: Due Srikanth to schedule provided Colon Cancer:Up To Date Breast Cancer:Up To Date Cervical Cancer:Up To Date Lung Cancer:Up To Date Osteoporosis:Up To Date Vaccinations:Up To Date Tobacco Screen:Up to date Depression Screen:Up to date Lazaro Carroll, DO [address] [place], [phone], [facility] 04/27/2023 15:00:11 02/19/2024 text/html ROS as noted in the HPI Vernell is here following up on reflux, obesity, depression and a thyroid nodule. GERDVernell has a history of GERD. She states she has been on omeprazole for almost a decade now. Has had an EGD done in the past for her acid reflux which she states was unremarkable. She is inquiring today about getting off this medication as she is concerned about worsening kidney function being on it. Denies any dysphagia, unintentional weight loss or choking. THYROID NODULEVernell has a history an abnormal thyroid nodule. Initial recommendation was follow-up in 1 year due to it being less than 2 cm. This would be due in March of this year. Denies any palpitations, unintentional weight loss, diaphoresis, diarrhea or constipation. OBESITYVernell has a history of morbid obesity. She has been on phentermine but stopped due to elevated blood pressure. Minimal changes in her diet. BMI stays elevated in the 40s. DEPRESSIONPHQ 9 indicated score of 10 points in the office today. Printed denies any sadness; no suicidal or homicidal ideations. Endorses anhedonia with loss of interest in activities. PREVENTATIVEColonosc opy up-to-date. Due for mammogram, Pap smear. YOLI GOMEZ MD [address] [place] [address], [phone], [facility] 02/22/2024 13:44:25 OBGyn Episode No OBEpisode recorded.
--- NOTE | 2025-05-25 03:52 | ED.GENADUL1 ---
HPI HPI - General Adult General Chief complaint: Abdominal Pain Stated complaint: heartburn Time Seen by Provider: 05/25/25 03:45 Source: patient Mode of arrival: walk-in History of Present Illness HPI narrative: states she was on her way home from [place] one week ago and developed intense GERD. States she believes she aspirated some of the acid. Coughing ever since and now phlegm is green. Continued burning sensation ever since that varies in intensity. States she has been taking her prescribed prilosec and even TUMS and the discomfort continues Related Data Home Medications ?Medication ?Instructions ?Recorded ?Confirmed omeprazole 20 mg capsule,delayed 40 mg PO BID 05/20/23 05/25/25 release Allergies Allergy/AdvReac Type Severity Reaction Status Date / Time Sulfa (Sulfonamide AdvReac Mild Hives Verified 05/25/25 03:36 Antibiotics) Review of Systems ROS Status of ROS 10 or more systems reviewed and unremarkable except as noted in history and below [facility] Medical History (Updated 05/25/25 @ 06:25 by Mukesh Castillo MD) FH: cholecystectomy ?Z83.79 - Family history of other diseases of the digestive system (ICD-10) Social History Little interest or pleasure in doing things: not at all Feeling down, depressed, or hopeless: not at all Exam Constitutional Vital Signs, click to edit/add: Last Vital Signs Temp 98.2 F 05/25/25 03:32 Pulse 78 05/25/25 03:32 Resp 20 05/25/25 03:32 BP 158/84 H 05/25/25 04:09 Pulse Ox 99 05/25/25 03:32 O2 Del Method Room Air 05/25/25 03:32 Common normals: no apparent distress, average body habitus, oriented x3, no limitations, healthy appearing, alert and well nourished [facility] Common normals: normocephalic and head/scalp atraumatic Eye Common normals: EOMs intact bilaterally and conjunctivae normal Respiratory Common normals: normal respiratory effort, no retractions, no use of accessory muscles and clear to auscultation bilaterally Cardio Common normals: regular rate, regular rhythm, S1 normal heart sound and S2 normal heart sound GI Common normals: Normal to inspection, nondistended, normoactive bowel sounds present, soft to palpation and non-tender Extremity Common normals: normal to inspection and full ROM Neuro Common normals: oriented x3, CN's II-XII intact bilaterally, moves all extremities and no focal motor deficits Psych Appearance: grossly normal Course Vital Signs Vital signs: Vital Signs Temperature 98.2 F 05/25/25 03:32 Pulse Rate 78 05/25/25 03:32 Respiratory Rate 20 05/25/25 03:32 Pulse Oximetry 99 05/25/25 03:32 Oxygen Delivery Method Room Air 05/25/25 03:32 Temperature 98.2 F 05/25/25 03:32 Pulse Rate 78 05/25/25 03:32 Respiratory Rate 20 05/25/25 03:32 Blood Pressure 158/84 H 05/25/25 04:09 Pulse Oximetry 99 05/25/25 03:32 Oxygen Delivery Method Room Air 05/25/25 03:32 Medical Decision Making MDM Narrative Medical decision making narrative: patient presents with complaint of heart burn for the past week. Believes she may have aspirated due to her GERD and has cough productive of green phlegm. No fever. She has been taking Prilosec but continues to have discomfort. EKG and troponin neg. Cxray per my review without infiltrate. Patient given GI cocktail and states it burned while going down and then relieved her discomfort. Will add carafate to her regimen and also zpak for bronchitis. She is advised to follow up with her family doctor . If symptoms continue will likely need GI referral for EGD. Discharged home in improved condition Lab Data Labs: Lab Results 05/25/25 Range/Units 04:20 WBC 6.3 (4.0-11.0) 10^3/uL RBC 4.69 (4.20-5.40) 10^6/uL Hgb 12.5 (12.0-16.0) g/dL Hct 39.4 (36.0-48.0) % MCV 84.0 (81.0-99.0) fL MCH 26.7 (26.7-34.0) pg MCHC 31.7 (29.9-35.2) g/dL RDW 15.0 (11.0-15.0) % Plt Count 215 (150-450) 10^3/uL MPV 9.5 (9.5-13.5) fL Neut % (Auto) 59.1 (43.0-75.0) % Lymph % (Auto) 29.2 (20.5-60.0) % Maverick % (Auto) 7.6 (1.7-12.0) % Eos % (Auto) 3.3 (0.9-7.0) % Baso % (Auto) 0.5 (0.2-2.0) % Neut # (Auto) 3.7 (1.4-6.5) 10^3/uL Lymph # (Auto) 1.8 (1.2-3.8) 10^3/uL Maverick # (Auto) 0.5 (0.3-0.8) 10^3/uL Eos # (Auto) 0.2 (0.0-0.7) 10^3/uL Baso # (Auto) 0.0 (0.0-0.1) 10^3/uL Abs Immat Gran (auto) 0.02 (0.00-0.03) 10^3/uL Imm/Tot Granulo (auto) 0.3 (0.0-0.5) % Sodium 141 (136-145) mmol/L Potassium 4.3 (3.5-5.1) mmol/L Chloride 105 (98-107) mmol/L Carbon Dioxide 31.7 (21.0-32.0) mmol/L Anion Gap 8.6 BUN 13.0 (7.0-18.0) mg/dL Creatinine 0.86 (0.55-1.02) mg/dL Est GFR ( Amer) >60 (>=60 mL/min/1.73m^2) Est GFR (Non-Af Amer) >60 (>=60 mL/min/1.73m^2) BUN/Creatinine Ratio 15.1 Glucose 104 (74-106) mg/dL Calcium 9.2 (8.5-10.1) mg/dL Total Bilirubin 0.4 (0.2-1.0) mg/dL AST 22 (15-37) U/L ALT 25 (14-59) U/L Alkaline Phosphatase 80 (46-116) U/L Troponin I High Sens 6.2 (4.0-51.3) pg/mL Total Protein 7.2 (6.4-8.2) g/dL Albumin 2.8 L (3.4-5.0) g/dL Globulin 4.4 g/dL Albumin/Globulin Ratio 0.6 Lipase 52.0 (16.0-77.0) U/L Discharge Plan Discharge Chief Complaint: Abdominal Pain Clinical Impression: GERD (gastroesophageal reflux disease), Bronchitis Patient Disposition: Home, Self-Care Prescriptions / Home Meds: No Action omeprazole 20 mg capsule,delayed release(DR/EC) 40 mg PO BID Print Language: Mohawk Instructions: Acute Bronchitis (ED), GERD (Gastroesophageal Reflux Disease) (ED) Additional Instructions: follow up with your family doctor this upcoming week Referrals: Physician,Non-Staff, MD [Primary Care Provider] - 1 week
--- NOTE | 2025-05-25 03:55 | XR_ITS ---
[facility] [place] [id number] Patient Name: VALERIO WU MRN: [id number] date: 1965 Sex: F Assigned Patient Location: ER Current Patient Location: Accession/Order Number: [id number] Exam Date: 05/25/2025 08:39 Report Date: 05/25/2025 08:40 At the request of: GARRET LITTLE MD Procedure: XR chest 2V Chest 2 views CLINICAL HISTORY: cough COMPARISON: None FINDINGS: Heart normal size. Evidence of old granulomatous disease. No consolidation pneumothorax pleural effusion or free air. XR/XR chest 2V IMPRESSION: NO ACUTE CARDIOPULMONARY ABNORMALITY. Impression dictated by: Leonela Tabor Jr.OSunny 05/25/2025 8:40 AM Dictation Location: [place] [address] Electronically authenticated by: [id number] Y Date: 05/25/2025 08:40
--- NOTE | 2025-05-25 03:55 | ECG_ITS ---
[facility] Test Date: 2025-05-25 Pat Name: VALERIO WU Department: Room: - Gender: Female Web Architect: : 1965 Requested By: [id number] Order Number: [id number] Reading MD: KYA LOVELL M.D. Measurements Intervals [place] Rate: 68 P: 0 MD: 118 QRS: 32 QRSD: 80 T: 35 QT: 406 QTc: 424 Interpretive Statements 1100 Sinus rhythm 2210 Short MD interval 8102 Low QRS voltage in chest leads 9150 abnormal ECG No previous ECG available for comparison Electronically Signed On 05-25-2025 19:40:32 EDT by KYA LOVELL M.D.
[2025-05-25 04:09] VITALS: BP 158/84
[2025-05-25 04:27] LABS: Hematocrit 39.4 % (36.0-48.0); Hemoglobin 12.5 g/dL (12.0-16.0); Immature Granulocytes Abs Auto 0.02 10^3/uL (0.00-0.03); Immature Granulocytes Pct Auto 0.3 % (0.0-0.5); Lymphocytes Absolute Auto 1.8 10^3/uL (1.2-3.8); Mean Corpuscular HGB Conc 31.7 g/dL (29.9-35.2); Mean Corpuscular Hemoglobin 26.7 pg (26.7-34.0); Mean Corpuscular Volume 84.0 fL (81.0-99.0); Platelet Count 215 10^3/uL (150-450); Red Blood Count 4.69 10^6/uL (4.20-5.40); White Blood Count 6.3 10^3/uL (4.0-11.0)
[2025-05-25 04:45] LABS: Alanine Aminotransferase 25 U/L (14-59); Albumin Globulin Ratio 0.6; Albumin Level 2.8 g/dL (3.4-5.0); Alkaline Phosphatase 80 U/L (46-116); Anion Gap 8.6; Blood Urea Nitrogen 13.0 mg/dL (7.0-18.0); Calcium 9.2 mg/dL (8.5-10.1); Carbon Dioxide 31.7 mmol/L (21.0-32.0); Chloride 105 mmol/L (98-107); Estimated GFR (African America >60 (>=60 mL/min/1.73m^2); Estimated GFR (Non-African Ame >60 (>=60 mL/min/1.73m^2); Globulin 4.4 g/dL; Glucose 104 mg/dL (74-106); Sodium 141 mmol/L (136-145); Total Protein 7.2 g/dL (6.4-8.2)
[2025-05-25 04:48] LABS: Aspartate Amino Transferase 22 U/L (15-37); Lipase 52.0 U/L (16.0-77.0); Potassium 4.3 mmol/L (3.5-5.1)
[2025-05-25] MEDS: lidocaine HCL 15 ML, MAG HYDROX/ALUMINUM HYD/SIMETH 30 ML, HYOSCYAMINE SULFATE 0.25 MG PO (05:13)
== END 2025-05-25 06:37 | disposition home or self-care (01) ==
PROVIDERS: Emergency Provider Internal Medicine
DX: J40 Bronchitis, not specified as acute or chronic (principal); K21.9 Gastro-esophageal reflux disease without esophagitis
CPT/HCPCS: 36415; 71046; 80053; 83690; 84484; 85025; 93005; 99285